=== PATIENT | male | born 1995 | race Caucasian/White ===

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

== ENCOUNTER 2018-11-17 19:57 | Emergency (ER) | payer BC, OTHER ==
[2018-11-17 20:03] VITALS: BP 156/79
--- NOTE | 2018-11-17 20:17 | EDPHY ---
H & P Stated Complaint: L ankle injury X 24 hours ago Time Seen by Provider: 11/17/18 20:09 HPI/ROS: CHIEF COMPLAINT: Left ankle pain HISTORY OF PRESENT ILLNESS: Patient is a 23-year-old man who comes to the emergency department complaining of left ankle pain, swelling and bruising. He states that he was playing [employer] yesterday when he inverted it when landing after jumping. It is painful to bear weight. No laceration or abrasion. He denies other injuries. Severity: Moderate Modifying factors: None REVIEW OF SYSTEMS: Constitutional: denies: chills, fever, recent illness, recent injury EENTM: denies: blurred vision, double vision, nose congestion Respiratory: denies: cough, shortness of breath Cardiac: denies: chest pain, irregular heart rate, lightheadedness, palpitations Gastrointestinal/Abdominal: denies: abdominal pain, diarrhea, nausea, vomiting, blood streaked stools Genitourinary: denies: dysuria, frequency, hematuria, pain Musculoskeletal: See HPI Skin: denies: lesions, rash, jaundice, bruising Neurological: denies: headache, numbness, paresthesia, tingling, dizziness, weakness Hematologic/Lymphatic: denies: blood clots, easy bleeding, easy bruising Immunologic/allergic: denies: HIV/AIDS, transplant 10 systems reviewed and negative except as noted EXAM: GENERAL: Well-appearing, well-nourished and in no acute distress. HEAD: Atraumatic, normocephalic. EYES: Pupils equal round and reactive to light, extraocular movements intact, sclera anicteric, conjunctiva are normal. ENT: TMs normal, nares patent, oropharynx clear without exudates. Moist mucous membranes. NECK: Normal range of motion, supple without lymphadenopathy or JVD. LUNGS: Breath sounds clear to auscultation bilaterally and equal. No wheezes rales or rhonchi. HEART: Regular rate and rhythm without murmurs, rubs or gallops. ABDOMEN: Soft, nontender, normoactive bowel sounds. No guarding, no rebound. No masses appreciated. BACK: No CVA tenderness, no spinal tenderness, step-offs or deformities EXTREMITIES: Left ankle swelling and bruising. Pain to bilateral malleoli. No leg pain. No foot pain. NEUROLOGICAL: Cranial nerves II through XII grossly intact. Normal speech, normal gait. 5/5 strength, normal movement in all extremities, normal sensation , normal reflexes PSYCH: Normal mood, normal affect. SKIN: See above, Warm, dry, normal turgor, no visible rashes or lesions. Source: Patient Exam Limitations: No limitations - Personal History Current Tetanus/Diphtheria Vaccine: Yes Current Tetanus Diphtheria and Acellular Pertussis (TDAP): Yes Tetanus Vaccine Date: 2014 - Medical/Surgical History Hx Asthma: No Hx Chronic Respiratory Disease: No Hx Diabetes: No Hx Cardiac Disease: No Hx Renal Disease: No Hx Cirrhosis: No Hx Alcoholism: No Hx HIV/AIDS: No Hx Splenectomy or Spleen Trauma: No Other PMH: None - Social History Smoking Status: Never smoked Alcohol Use: None Constitutional: Initial Vital Signs Temperature (C) 36.7 C 11/17/18 20:01 Heart Rate 91 11/17/18 20:01 Respiratory Rate 16 11/17/18 20:01 Blood Pressure 156/79 H 11/17/18 20:01 O2 Sat (%) 95 11/17/18 20:01 O2 Delivery Mode Room Air Allergies/Adverse Reactions: No Known Allergies Allergy (Unverified 11/17/18 20:00) Home Medications: Medication Instructions Recorded Azithromycin [Zithromax] 250 mg PO DAILY #6 tab 12/02/16 Medical Decision Making - Diagnostics Imaging Results: Imaging Impressions Ankle X-Ray 11/17/18 20:04 Impression: 1. Intact ankle mortise. No acute distal tibia or fibular fracture. 2. Query extensor digitorum brevis avulsion injury. Findings discussed with Emergency Department physician, ED VAELNTIN at 20:38. Imaging: Discussed imaging studies w/ fountain server Radiologist ED Course/Re-evaluation: 8:30 p.m. discussed x-ray results. Patient is reassured. He declines splint or brace. He has own Kevin wrap in place. He declines crutches. He will take [id number] medications for pain. Discussed indications for returning. Discussed follow-up. Discussed the case with Radiology. He does have possible avulsion injury of the Proteus brevis tendon but this does not exchange administrator. Differential Diagnosis: Partial list of the Differential diagnosis considered include but were not limited to; ankle sprain, ankle fracture and although unlikely based on the history and physical exam, I also considered laceration, foot fracture, high ankle sprain. I discussed these differential diagnoses and the plan with the patient as well as the usual and expected course. The patient understands that the diagnosis is provisional and that in medicine we are not always correct and that further workup is often warranted. Usual and customary warnings were given. All of the patient's questions were answered. The patient was instructed to return to the emergency department should the symptoms at all worsen or return, otherwise to followup with the physician as we discussed. Departure - Departure Disposition: Home, Routine, Self-Care Clinical Impression: Left ankle sprain Qualifiers: Encounter type: initial encounter Involved ligament of ankle: unspecified ligament Qualified Code(s): S93.402A - Sprain of unspecified ligament of left ankle, initial encounter Condition: Good Instructions: Ankle Sprain (ED) Referrals: Morris Prado MD [Medical Doctor] - 5-7 days, if not improved
== END 2018-11-17 20:34 | disposition home or self-care (01) ==
DX: S93.402A Sprain of unspecified ligament of left ankle, initial encounter (principal); X50.1XXA Overexertion from prolonged static or awkward postures, initial encounter; Y93.74 Activity, frisbee